=== PATIENT | female | born 1965 | race Caucasian/White ===

== ENCOUNTER → 2022-04-01 | Outpatient (CLI) | payer BC ==
--- NOTE | 2022-04-01 22:25 | MR ---
EXAMINATION TYPE: MR lumbar spine wo con DATE OF EXAM: 04/01/2022 6:12 PM COMPARISON: None. CLINICAL INDICATION:Female, 56 years old with history of M54.16 RADICULOPATHY, LUMBAR RASHEEDA; TECHNIQUE: Multi planar, multi sequence imaging was performed utilizing: T1-weighted, T2-weighted, a nd turbo inversion recovery imaging of the lumbar spine. IV Contrast: None. FINDINGS: Alignment: The lumbar vertebral bodies have preserved heights. Grade 1 anterolisthesis of L4 on L5. Cord: The conus medullaris and the distal spinal cord appear unremarkable with regards to their signa l intensity and morphology. The thecal sac terminates around L4-L5 Bones/Discs: High increased inversion recovery signal seen within the spleen pedicles of right L4-L5 and to a lesser extent on the left. T2 high T1 signal vertebral body hemangiomas most pronounced in t he L1 vertebrae. Disc signal is maintained. L1-L2: No evidence of significant spinal canal stenosis. Facet joint arthropathy with mild left neura l foraminal stenosis. The right neural foramen is patent. L2-L3: No evidence of significant spinal canal stenosis or neural foraminal stenosis. L3-L4: Disc bulging and facet joint arthropathy with out significant spinal canal stenosis and mild b ilateral neural foraminal stenosis. L4-L5: Disc uncovering from grade 1 anterolisthesis with facet joint arthropathy resulting in moderat e to severe bilateral neural foraminal stenosis. Spinal canal is mildly narrowed the termination of t he thecal sac is at this level. L5-S1: No evidence of significant spinal canal stenosis or neural foraminal stenosis. Other findings: None. IMPRESSION: 1. No definitive evidence of disc herniation or significant spinal canal stenosis. 2. Grade 1 anterolisthesis of L4 and L5 with reactive bony edema within the right pedicles of L4 and L5. 3. L4-L5 moderate to severe bilateral neural foraminal stenosis with bilateral Facet joint effusions.
== END | disposition home or self-care (01) ==
LOC: RADMRIMAIN 17:30
PROVIDERS: ATTEND Pain Medicine Interventional Pain Medicine
DX: M43.16 Spondylolisthesis, lumbar region (principal); M48.061 Spinal stenosis, lumbar region without neurogenic claudication; M99.73 Connective tissue and disc stenosis of intervertebral foramina of lumbar region; M25.40 Effusion, unspecified joint
CPT/HCPCS: 72148